=== PATIENT | male | born 1985 | race Caucasian/White ===

== ENCOUNTER → 2022-04-30 | Outpatient (CLI) | payer BC ==
--- NOTE | 2022-04-30 13:28 | US ---
EXAMINATION TYPE: US groin LT DATE OF EXAM: 04/30/2022 COMPARISON: NONE CLINICAL HISTORY: N50.812 K40.90. Left groin and left testicular pain Left groin: 1.8cm lymph node seen, 1.7cm area seen that appears to bulge through a break in tissue th at shows movement during valsalva IMPRESSION: 1. Findings suggest a some small lymph nodes in the left groin. 2. Findings are suspicious for left inguinal hernia. Recommend CT scan pelvis and clinical correlatio n.
--- NOTE | 2022-04-30 13:31 | US ---
EXAMINATION TYPE: US scrotum with doppler. Grayscale and color Doppler Duplex imaging performed of kya corbin scrotum. DATE OF EXAM: 04/30/2022 COMPARISON: NONE CLINICAL HISTORY: N50.812 K40.90. Left groin and left testicular pain EXAM MEASUREMENTS: TESTICLES: Right Testicle: 4.6 x 3.1 x 2.7 cm Left Testicle: 4.6 x 2.7 x 3.0 cm EPIDIDYMIS HEAD: Right Epididymis: 1.3 cm Left Epididymis: 1.4 cm Doppler performed to assess for testicular vascularity; good bilateral color flow and waveforms are s een. There is no evidence of testicular torsion. Presence of hydroceles: right 2.8cm, left 3.3cm Presence of varicoceles: lateral to left testicle IMPRESSION: 1. Bilateral small hydroceles. 2. There is a left varicocele
== END | disposition home or self-care (01) ==
LOC: RADUSWWP 12:29
PROVIDERS: ATTEND Family Medicine
DX: I86.1 Scrotal varices (principal); N43.3 Hydrocele, unspecified
CPT/HCPCS: 76870; 93975